=== PATIENT | male | born 1985 | race African-American/Black ===

== ENCOUNTER 2016-11-16 09:22 | Emergency (ER) | payer OTHER ==
[2016-11-16 09:29] VITALS: BP 119/71; PULSE 88; TEMP 98.2; BMI 32.5
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
== END 2016-11-16 10:44 | disposition home or self-care (01) ==
LOC: JERFT 09:22 → JER 09:22 → JERFT 10:44
DX: R20.0 Anesthesia of skin (principal)
CPT/HCPCS: 99281-25

== ENCOUNTER 2017-02-17 20:41 | Emergency (ER) | payer OTHER ==
[2017-02-17 20:55] VITALS: BP 113/71; PULSE 85; TEMP 98.7; BMI 33.2
[2017-02-17] MEDS ORDERED: IBUPROFEN 400 MG TABLET (FP) PO ONE ×2 (21:18→21:20)
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
== END 2017-02-17 21:25 | disposition home or self-care (01) ==
LOC: JERFT 20:41
DX: S39.012A Strain of muscle, fascia and tendon of lower back, initial encounter (principal); S16.1XXA Strain of muscle, fascia and tendon at neck level, initial encounter; V73.5XXA Driver of bus injured in collision with car, pick-up truck or van in traffic accident, initial encounter; Y92.414 Local residential or business street as the place of occurrence of the external cause; Y93.89 Activity, other specified; Y99.8 Other external cause status
CPT/HCPCS: 99281-25

== ENCOUNTER 2019-05-08 12:47 | Emergency (ER) | payer SELFPAY ==
[2019-05-08 12:52] VITALS: BP 131/85; PULSE 78; TEMP 97.7; BMI 31.1
--- NOTE | 2019-05-08 14:08 | PDOC ---
History of Present Illness - General Chief Complaint: Urinary Problem Stated Complaint: COLD SYMPTOMS Time Seen by Provider: 05/08/19 13:32 History Source: Patient Exam Limitations: No Limitations - History of Present Illness Travel History: No Initial Comments: 05/08/19 14:03 HISTORY OF PRESENT ILLNESS: 33-year-old male presents to the emergency department with rhinorrhea for 2 days and 2 episodes of blood clots in his urine. Patient denies any hematuria was concerned when he saw single blood clot in his urine on 2 separate episodes. He denies any yojana hematuria, dysuria, urinary frequency, testicular pain, penile pain or penile discharge. No recent travel or sick contacts. PAST MEDICAL HISTORY: Denies past medical history SURGICAL HISTORY: Denies ALLERGIES: No known drug allergies REVIEW OF SYSTEMS General/Constitutional: Denies fever or chills. Denies weakness, weight change. HEENT: See HPI Cardiovascular: Denies chest pain or shortness of breath. Respiratory: Denies cough, wheezing, or hemoptysis. Gastrointestinal: Denies nausea, vomiting, diarrhea or constipation. Denies rectal bleeding. Genitourinary: See HPI Musculoskeletal: Denies joint or muscle swelling or pain. Denies neck or back pain. Skin and breasts: Denies rash or easy bruising. Neurologic: Denies headache, vertigo, loss of consciousness, or loss of sensation. Psychiatric: Denies depression or anxiety. Endocrine: Denies increased thirst. Denies abnormal weight change. Hematologic/Lymphatic: Denies anemia, easy bleeding, or history of blood clots. Allergic/Immunologic: Denies hives or skin allergy. Denies latex allergy. PHYSICAL EXAM General Appearance: Well-appearing, appropriately dressed. No apparent distress , no intoxication. HEENT: EOMI, PERRLA, normal ENT inspection, normal voice, TMs normal, pharynx normal. No conjunctival pallor. No photophobia, scleral icterus. Nose clear. Respiratory/Chest: Lungs CTAB. No shortness of breath, chest tenderness, respiratory distress, accessory muscle use. No crackles, rales, rhonchi, stridor , wheezing, dullness. Cardiovascular: RRR. S1, S2. No JVD, murmur, bradycardia, tachycardia. Gastrointestinal/Abdominal: Normal bowel sounds. Abdomen soft, non-distended. No tenderness or rebound tenderness. No organomegaly, pulsatile mass, guarding, hernia, hepatomegaly, splenomegaly. Musculoskeletal/Extremities: Normal inspection. FROM of all extremities, normal capillary refill. Pelvis Stable. No CVA tenderness. No tenderness to extremities, pedal edema, swelling, erythema or deformity. Past History - Past Medical History Allergies/Adverse Reactions: Allergies Allergy/AdvReac Type Severity Reaction Status Date / Time No Known Allergies Allergy Verified 05/08/19 12:52 Home Medications: Ambulatory Orders NK [No Known Home Medication] 11/16/16 COPD: No - Immunization History Immunization Up to Date: Yes - Psycho Social/Smoking Cessation Hx Smoking History: Never smoked Have you smoked in the past 12 months: No Hx Alcohol Use: No Drug/Substance Use Hx: No Substance Use Type: None, Marijuana *Physical Exam - Vital Signs Last Vital Signs Temp Pulse Resp BP Pulse Ox 97.7 F 78 18 131/85 99 05/08/19 12:50 05/08/19 12:50 05/08/19 12:50 05/08/19 12:50 05/08/19 12:50 Medical Decision Making - Medical Decision Making 05/08/19 14:06 A/P: 33-year-old male with 2 episodes of blood clots in his urine Denies any other symptoms No CVA tenderness Genital exam is within normal limits Patient denies any unprotected sex Urinalysis, urine culture, urine GC Low threshold for imaging pending urinalysis results. 05/08/19 14:28 Laboratory Tests 05/08/19 14:00 Urine Color Yellow Urine Appearance Clear Urine pH 5.5 Ur Specific [place] 1.029 Urine Protein Negative Urine Glucose (UA) Negative Urine Ketones Negative Urine Blood Negative Urine Nitrite Negative Urine Bilirubin Negative Urine Urobilinogen 0.2 Ur Leukocyte Esterase Negative No microscopic hematuria present. Not suggestive of infection. As patient is not having any penile pain, penile discharge or testicular pain I will defer GC testing at this time pending results. No imaging needed given absence of hematuria or infection. Discharge home to follow-up with urology. I discussed the physical exam findings, ancillary test results and final diagnoses with the patient. I answered all of the patient's questions. The patient was satisfied with the care received and felt comfortable with the discharge plan and treatment plan. The patient will call their primary care physician within 24 hours to arrange follow-up and will return to the Emergency Department with any new, persistent or worsening symptoms. Discharge - Discharge Information Problems reviewed: Yes Clinical Impression/Diagnosis: Physically well but worried Condition: Stable Disposition: HOME - Admission No - Follow up/Referral Referrals: Carson Magdaleno MD [Staff Physician] - - Patient Discharge Instructions Additional Instructions: Your urinalysis today is negative. Gonorrhea and Chlamydia testing will take 2 to 3 days to get a result. We will call you for any positive results. You been given a referral for a urologist. Symptoms continue please call for reevaluation. Your emergency department visit is incomplete until you follow-up with your primary doctor or urology. Thank you very much for choosing us to provide your emergent health care needs. - Post Discharge Activity
[2019-05-08 14:25] LABS: PH,URINE 5.5 (5.0-8.0); URINE APPEARANCE CLEAR; URINE BILIRUBIN NEGATIVE (NEGATIVE); URINE COLOR YELLOW; URINE GLUCOSE (UA) NEGATIVE (NEGATIVE); URINE KETONE NEGATIVE (NEGATIVE); URINE LEUK ESTERASE NEGATIVE (NEGATIVE); URINE NITRITE NEGATIVE (NEGATIVE); URINE PROTEIN NEGATIVE (NEGATIVE); URINE UROBILINOGEN 0.2 mg/dL (0.2-1.0)
== END 2019-05-08 14:30 | disposition home or self-care (01) ==
LOC: JERFT 12:47
DX: Z71.1 Person with feared health complaint in whom no diagnosis is made (principal)
CPT/HCPCS: 36415; 81003; 87077; 87086; 87491; 87591; 99282-25

== ENCOUNTER 2020-03-14 07:35 | Emergency (ER) | payer OTHER ==
[2020-03-14 07:56] VITALS: TEMP 98.9; BMI 31.3
[2020-03-14] MEDS ORDERED: SODIUM CHLORIDE 0.9% 500 ML INFUS.BAG IV ONE (08:16)
--- NOTE | 2020-03-14 08:22 | PDOC ---
History of Present Illness - General Chief Complaint: Nausea/Vomiting Stated Complaint: VOMITING Time Seen by Provider: 03/14/20 08:01 History Source: Patient - History of Present Illness Initial Comments: 03/14/20 08:17 34-year-old male denies past medical history presents complaining of nausea, one episode of vomiting and approximately 4 episodes of diarrhea since 5 AM this morning. States he had decreased appetite yesterday, felt mild abdominal cramping since yesterday evening. Reports right eye conjunctivitis which resolved without intervention 5 days ago. Denies fever, chills, chest pain, s hortness of breath, back pain, sick contacts, recent travel, urinary complaints or any other symptoms. Patient has not taken any medications. Also reports had a follow-up with his primary care physician 2 weeks ago, had blood work which was "all normal". Patient denies tobacco use, alcohol use or any use of other illicit substances. ROS: as above PE: GENERAL: well-appearing, NAD HEAD: NCAT EYES: Pupils equal, round and reactive to light, sclera anicteric, conjunctiva clear ENT: pharynx: no erythema, no exudate, uvula midline NECK: supple, no LAD CHEST: nontender RESP: clear, no w/r/r CARDIO: rrr, no m/g/r ABD: +BS, soft, nontender, non distended BACK: no midline spinal ttp, no CVAT EXTREMITIES: Normal range of motion, no edema NEUROLOGICAL: Normal speech, normal gait SKIN: Warm, Dry Past History - Medical History Allergies/Adverse Reactions: Allergies Allergy/AdvReac Type Severity Reaction Status Date / Time No Known Allergies Allergy Verified 03/14/20 07:56 Home Medications: Ambulatory Orders NK [No Known Home Medication] 11/16/16 COPD: No - Immunization History Immunization Up to Date: Yes - Psycho-Social/Smoking History Smoking History: Never smoked Have you smoked in the past 12 months: No Information on smoking cessation initiated: No - Substance Abuse Hx (Audit-C & DAST Scrn) How often the patient has a drink containing alcohol: Monthly or less Number of drinks the patient has on a typical day: 1 or 2 How often the patient has six or more drinks on one occasion: Never Score: In Men: 4 or > Positive; In Women: 3 or > Positive: 1 Screen Result (Pos requires Nsg. Audit-10AR): Negative In the last yr the pt used illegal drug/Rx for NonMed reason: No Score: Yes response is considered Positive: 0 Screen Result (Positive result requires Nsg. DAST-10): Negative *Physical Exam - Vital Signs Last Vital Signs Temp Pulse Resp BP Pulse Ox 98.9 F 86 17 150/81 100 03/14/20 07:53 03/14/20 07:53 03/14/20 07:53 03/14/20 07:53 03/14/20 07:53 ED Treatment Course - LABORATORY CBC & Chemistry Diagram: 03/14/20 08:30 03/14/20 08:30 Medical Decision Making - Medical Decision Making 03/14/20 08:21 34-year-old male denies past medical history presents complaining of nausea, one episode of vomiting and approximately 4 episodes of diarrhea since 5 AM this morning. States he had decreased appetite yesterday, felt mild abdominal cramping since yesterday evening. Reports right eye conjunctivitis which resolved without intervention 5 days ago. Denies fever, chills, chest pain, sh ortness of breath, back pain, sick contacts, recent travel, urinary complaints or any other symptoms. Patient has not taken any medications. Also reports had a follow-up with his primary care physician 2 weeks ago, had blood work which was "all normal". Patient denies tobacco use, alcohol use or any use of other illicit substances. VSS Abdomen benign will send CBC, CMP, UA IV fluids Reassess 03/14/20 10:30 Patient feels better after IV fluid Abdomen benign No vomiting or diarrhea while in the ED Discussed lab results with patient We will continue to hydrate will follow-up with PMD this week Note for work provided Discharge - Discharge Information Problems reviewed: Yes Clinical Impression/Diagnosis: Nausea & vomiting Qualifiers: Vomiting type: unspecified Vomiting Intractability: unspecified Qualified Code(s): R11.2 - Nausea with vomiting, unspecified Condition: Stable Disposition: HOME - Admission No - Follow up/Referral - Patient Discharge Instructions - Post Discharge Activity Work/Back to School Note: Back to Work
[2020-03-14 09:19] LABS: BASO % 1.7 % (0-2.0); EOS % 6.2 % (0-4.5); HEMATOCRIT 38.8 % (35.4-49); HEMOGLOBIN 13.3 GM/dL (11.7-16.9); LYMPH % 45.5 % (8-40); MCHC 34.3 g/dl (32.0-35.9); MEAN CELL VOLUME 93.2 fl (80-96); MEAN PLT VOLUME 8.4 fl (7.5-11.1); MONO % 9.8 % (3.8-10.2); NEUT % 36.8 % (42.8-82.8); PLATELET COUNT 251 K/MM3 (134-434); RBC 4.16 M/mm3 (4.00-5.60); RDW 14.5 % (11.9-15.9); WHITE BLOOD COUNT 2.7 K/mm3 (4.0-10.0)
[2020-03-14 09:50] LABS: URINE APPEARANCE CLEAR; URINE BILIRUBIN NEGATIVE (NEGATIVE); URINE COLOR YELLOW; URINE GLUCOSE (UA) NEGATIVE (NEGATIVE); URINE KETONE TRACE (NEGATIVE); URINE LEUK ESTERASE NEGATIVE (NEGATIVE); URINE NITRITE NEGATIVE (NEGATIVE); URINE PROTEIN NEGATIVE (NEGATIVE)
[2020-03-14 09:56] LABS: POTASSIUM 4.5 mmol/L (3.5-5.1)
[2020-03-14 09:57] LABS: ALBUMIN 3.7 g/dl (3.4-5.0); BILIRUBIN,TOTAL 0.6 mg/dL (0.2-1); BLOOD UREA NITROGEN 10.1 mg/dL (7-18); CALCIUM 8.8 mg/dL (8.5-10.1); CREATININE 1.4 mg/dL (0.55-1.3); TOT PROT 7.1 g/dl (6.4-8.2)
[2020-03-14 11:14] VITALS: BP 128/72; PULSE 77
== END 2020-03-14 11:13 | disposition home or self-care (01) ==
LOC: JER 07:35
DX: R11.2 Nausea with vomiting, unspecified (principal)
CPT/HCPCS: 36415; 80053; 81003; 85025; 99284-25

== ENCOUNTER 2020-08-31 18:38 | Emergency (ER) | payer OTHER ==
[2020-08-31 19:02] VITALS: TEMP 98.7; BMI 29.8
[2020-08-31] MEDS ORDERED: ACETAMINOPHEN 1000 MG/100 ML VIAL (NON FORMULARY) IVPB ONE (20:11)
[2020-08-31] MEDS ORDERED: SODIUM CHLORIDE 0.9% 500 ML INFUS.BAG IV ONE (20:11)
[2020-08-31] MEDS ORDERED: ONDANSETRON 4 MG/2 ML VIAL IVPUSH ONE (20:11)
[2020-08-31] MEDS ORDERED: FAMOTIDINE 20 MG/50 ML IVPB 20 MG/50 ML MG IVPB ONE ×2 (20:17→20:46)
[2020-08-31] MEDS ORDERED: MAG HYDROX/AL HYDROX/SIMETH -MYLANTA- ORAL SUSPENSION PO ONE (20:17)
[2020-08-31] MEDS ORDERED: ACETAMINOPHEN INJECTION 100 ML IVPB ONE (20:45)
[2020-08-31] MEDS ORDERED: MAG HYDROX/AL HYDROX/SIMETH 30 ML UNIT-DOSE CUP ONE (20:46)
[2020-08-31] MEDS ORDERED: ONDANSETRON 4 MG/2 ML VIAL ONE (20:46)
[2020-08-31 21:14] LABS: BASO % 0.3 % (0-2.0); HEMATOCRIT 41.9 % (35.4-49); HEMOGLOBIN 14.6 GM/dL (11.7-16.9); MCH 31.8 pg (25.7-33.7); MCHC 34.8 g/dl (32.0-35.9); MEAN CELL VOLUME 91.2 fl (80-96); MEAN PLT VOLUME 8.7 fl (7.5-11.1); NEUT % 83.7 % (42.8-82.8); PLATELET COUNT 272 K/MM3 (134-434); RBC 4.59 M/mm3 (4.00-5.60); WHITE BLOOD COUNT 8.5 K/mm3 (4.0-10.0)
[2020-08-31 21:33] LABS: POTASSIUM 4.2 mmol/L (3.5-5.1)
[2020-08-31 21:35] LABS: BLOOD UREA NITROGEN 10.8 mg/dL (7-18); CALCIUM 10.2 mg/dL (8.5-10.1)
[2020-08-31 21:36] LABS: ALBUMIN 4.2 g/dl (3.4-5.0)
[2020-08-31 21:39] LABS: CREATININE 1.5 mg/dL (0.55-1.3)
[2020-08-31 21:40] LABS: BILIRUBIN,TOTAL 0.4 mg/dL (0.2-1); TOT PROT 8.3 g/dl (6.4-8.2)
[2020-08-31 22:13] VITALS: BP 126/86; PULSE 86
== END 2020-08-31 22:13 | disposition home or self-care (01) ==
LOC: JER 18:38
PROC: 3E0333Z Introduction of Anti-inflammatory into Peripheral Vein, Percutaneous Approach (ICD-10-PCS; principal; 2020-08-31)
PROC: 3E033GC Introduction of Other Therapeutic Substance into Peripheral Vein, Percutaneous Approach (ICD-10-PCS; 2020-08-31)
PROC: 3E033GC Introduction of Other Therapeutic Substance into Peripheral Vein, Percutaneous Approach (ICD-10-PCS; 2020-08-31)
DX: R11.2 Nausea with vomiting, unspecified (principal)
CPT/HCPCS: 36415; 80053; 83690; 85025; 99284-25; J0131

== ENCOUNTER 2022-01-24 03:26 | Emergency (ER) | payer OTHER ==
[2022-01-24 03:36] VITALS: BP 110/73; PULSE 81; RESP 20; TEMP 98.3; BMI 29.0
[2022-01-24] MEDS ORDERED: ACETAMINOPHEN 500 MG TABLET (FP) PO ONE (03:50)
[2022-01-24] MEDS ORDERED: ACETAMINOPHEN 325 MG TABLET (FP) ONE (04:43)
== END 2022-01-24 05:57 | disposition home or self-care (01) ==
LOC: JER 03:26
DX: M54.89 Other dorsalgia (principal); M25.551 Pain in right hip; M25.552 Pain in left hip; V49.50XA Passenger injured in collision with unspecified motor vehicles in traffic accident, initial encounter
CPT/HCPCS: 70450-TC; 71045-TC-FY; 72125-TC; 72128-TC; 72170-TC-FY; 99284-25